=== PATIENT | female | born 1990 | race Caucasian/White ===

== ENCOUNTER 2020-05-09 14:56 | Inpatient (IN) | payer SELFPAY ==
[2020-05-09 14:59] VITALS: BMI 22.3
[2020-05-09 15:05] VITALS: BP 125/87; PULSE 101; RESP 18; TEMP 36.7; O2SAT 98
[2020-05-09] MEDS: ziprasidone 20 mg/mL SDV IM (15:40)
[2020-05-09 16:02] LABS: Basophils % 0.3 %; Eosinophils # 0.1 10^3/uL (0.0-0.8); Hematocrit 43.6 % (37.0-47.0); Hemoglobin 14.1 g/dL (11.5-15.3); Lymphocytes # 2.5 10^3/uL (0.8-4.8); Lymphocytes % 25.9 %; Mean Corpuscular HGB Conc 32.3 g/dL (30.0-36.0); Mean Corpuscular Hemoglobin 28.5 pg (28.0-34.0); Mean Corpuscular Volume 88.3 fL (81-99); Mean Platelet Volume 9.1 fL (7.4-10.4); Monocytes # 0.8 10^3/uL (0.2-0.9); Monocytes % 8.4 %; Neutrophils # 6.14 10^3/uL (1.8-7.7); Neutrophils % 64.1 %; Nucleated Red Blood Cells % 0 %; Platelet Count 339 10^3/cmm (130-400); Red Blood Count 4.94 10^6/uL (4.1-5.3); Red Cell Distribution Width 13.6 % (12.1-15.1); White Blood Count 9.6 10^3/uL (4.0-10.0)
[2020-05-09 16:15] LABS: Add Urine Microscopic? YES; Bilirubin Urine 1+ (NEGATIVE); Blood Urine 3+ (Negative); Glucose Urine UA Norm (Normal); HCG Qualitative Urine. Negative (Negative); Ketones Urine 1+ (Negative); Leukocyte Esterase Urine 2+ (Negative); Nitrate Urine Negative (Negative); Protein Urine 2+ (Negative); Urine Appearance Hazy (CLEAR); Urine Color Amber (Yellow); Urobilinogen Urine 1 mg/dL (Negative); pH Urine 5 (5-7)
[2020-05-09 16:24] LABS: Amphetamines Screen Urine Positive (Negative); Barbiturates Screen Urine Negative (Negative); Benzodiazepines Screen Urine Negative (Negative); Cocaine Screen Urine Negative (Negative); Opiate Screen Urine Negative (Negative); PCP Screen Urine Negative (Negative); THC Screen Urine Positive (Negative)
[2020-05-09 16:29] LABS: Alanine Aminotransferase 9 U/L (0-33); Albumin Level 4.7 g/dL (3.5-5.2); Alkaline Phosphatase 66 IU/L (35-105); Anion Gap 15.9 (5-19); Aspartate Amino Transferase 17 U/L (0-32); Blood Urea Nitrogen 9 mg/dL (6-20); Calcium 9.9 mg/dL (8.5-10.5); Carbon Dioxide 22 mmol/L (22-29); Chloride 103 mmol/L (98-107); Globulin 3.6 g/dL (1.3-4.6); Glomerular Filtration Rate 84.2 mL/min (90-130); Glucose 83 mg/dL (65-115); Osmolality Calculated 279 mOsm/kg (285-295); Potassium 3.9 mmol/L (3.5-5.1); Salicylate 0.9 mg/dL (3-10); Sodium 137 mmol/L (136-145); Thyroid Stimulating Hormone 1.83 uIU/mL (0.27-4.20); Total Bilirubin 0.4 mg/dL (0.15-1.2); Total Protein 8.3 g/dL (6.6-8.7)
[2020-05-09 16:30] LABS: Bacteria Urine 2+; Mucus Urine 3+; Squamous Epithelial Cell Urine 40-55 (0-5); WBC Urine 15-25 /hpf (0-5)
[2020-05-09 16:31] LABS: Add Urine Culture? No
[2020-05-09 16:37] LABS: Acetaminophen < 5.0 ug/mL (10-30); Alcohol Level < 10 mg/dL (0-10)
[2020-05-09 16:40] LABS: INR 0.91 (0.8-1.2)
[2020-05-09 18:42] VITALS: BP 125/87; PULSE 101; RESP 18; TEMP 36.7
[2020-05-09 22:00] VITALS: BP 132/96; PULSE 95; RESP 17; TEMP 37.2; O2SAT 96
--- NOTE | 2020-05-09 22:42 | W.ED.PSYCH ---
HPI - Psych General: Chief Complaint: Psychiatric Symptoms Stated Complaint: 96 Time Seen by Provider: 05/09/20 15:09 History of Present Illness: HPI Narrative: This patient is a 30-year-old female brought in by police. She apparently was in [facility] overnight for drug charges and when she got home she found that her cat had . She believes that her family MRSA killed her cat on purpose and she became quite irate. She threatened her grandmother and herself with a machete. Police were called and the patient was brought in. The officer has written an affidavit regarding her behavior. Patient really does not talk to me except to fabiola and yocasta about how she has been mistreated by her family and the police. She is definitely not rational today. complaint: suicidal ideation Onset (ago): unknown Review of Systems General: Reports: ROS unobtainable due to mental status [facility] ED Female Reproductive History: Date of last menstrual period: 04/15/20 Physical Exam Const: COMMON NORMALS: no acute distress and no limitations GENERAL APPEARANCE: in distress, anxious and disheveled HENMT: HEAD & SCALP: normal to inspection FACE & SINUS: normal facial exam Eye: GENERAL EYE: appearance normal, both eyes and all related structures Neck/C-Spine: COMMON NORMALS: supple and no meningeal signs Chest: COMMONS NORMALS: normal inspection of the chest Resp: COMMON NORMALS: normal respiratory effort GI: COMMON NORMALS: Normal to inspection, nondistended, normoactive bowel sounds present, Soft to palpation and non-tender INSPECTION: Yes normal to inspection AUSCULTATION: Yes normoactive bowel sounds PALPATION: Yes Soft to palpation Extremity: COMMON NORMALS: normal to inspection Neuro: COMMON NORMALS: moves all extremities, no focal motor deficits and no sensory deficits noted MENINGEAL SIGNS: Yes no meningeal signs Psych: COMMON NORMALS: mental status grossly normal APPEARANCE: Yes disheveled ATTITUDE: Yes uncooperative, Yes Belligerent attititude/behavior present, Yes agitated and Yes aggressive Skin: COMMON NORMALS: no rashes or lesions noted and turgor normal GENERAL SKIN EXAM: no rashes or lesions noted and turgor normal MDM - Psych Lab Data: Labs: Lab Results 05/09/20 05/09/20 05/09/20 Range/Units 15:45 15:45 15:45 WBC 9.6 (4.0-10.0) 10^3/ uL RBC 4.94 (4.1-5.3) 10^6/u L Hgb 14.1 (11.5-15.3) g/dL Hct 43.6 (37.0-47.0) % MCV 88.3 (81-99) fL MCH 28.5 (28.0-34.0) pg MCHC 32.3 (30.0-36.0) g/dL RDW 13.6 (12.1-15.1) % Plt Count 339 (130-400) 10^3/c mm MPV 9.1 (7.4-10.4) fL Neut % (Auto) 64.1 % Lymph % (Auto) 25.9 % Teton % (Auto) 8.4 % Eos % (Auto) 1.0 % Baso % (Auto) 0.3 % Neut # (Auto) 6.14 (1.8-7.7) 10^3/u L Lymph # (Auto) 2.5 (0.8-4.8) 10^3/u L Teton # (Auto) 0.8 (0.2-0.9) 10^3/u L Eos # (Auto) 0.1 (0.0-0.8) 10^3/u L Baso # (Auto) 0.0 (0.0-0.1) 10^3/u L Nucleated RBC % (a uto) 0 % Nucleated RBCs # 0.0 /100WBC PT 12.50 (10.5-13.3) SECO NDS INR 0.91 (0.8-1.2) Sodium 137 (136-145) mmol/L Potassium 3.9 (3.5-5.1) mmol/L Chloride 103 (98-107) mmol/L Carbon Dioxide 22 (22-29) mmol/L Anion Gap 15.9 (5-19) BUN 9 (6-20) mg/dL Creatinine 0.8 (0.5-0.9) mg/dL GFR Calculation 84.2 L (90-130) mL/min Glucose 83 (65-115) mg/dL Calculated Osmolal ity 279 L (285-295) mOsm/k g Calcium 9.9 (8.5-10.5) mg/dL Total Bilirubin 0.4 (0.15-1.2) mg/dL AST 17 (0-32) U/L ALT 9 (0-33) U/L Alkaline Phosphata se 66 (35-105) IU/L Total Protein 8.3 (6.6-8.7) g/dL Albumin 4.7 (3.5-5.2) g/dL Globulin 3.6 (1.3-4.6) g/dL TSH 1.83 (0.27-4.20) uIU/ mL HCG, Qual (Negative) Urine Color (Yellow) Urine Appearance (CLEAR) Urine pH (5-7) Ur Specific Gravit y (1.005-1.030) Urine Protein (Negative) Urine Glucose (UA) (Normal) Urine Ketones (Negative) Urine Blood (Negative) Urine Nitrate (Negative) Urine Bilirubin (NEGATIVE) Urine Urobilinogen (Negative) mg/dL Ur Leukocyte Reshma ase (Negative) Urine RBC (0-2) /hpf Urine WBC (0-5) /hpf Ur Squamous Epith Cells (0-5) Ur Transition Epit h Cell /hpf Amorphous Sediment Urine Bacteria (NONE) Hyaline Casts Urine Mucus Salicylates 0.9 L (3-10) mg/dL Urine Opiates Scre en (Negative) ng/mL Acetaminophen < 5.0 L (10-30) ug/mL Ur Barbiturates Sc reen (Negative) ng/mL Ur Phencyclidine S crn (Negative) ng/mL Ur Amphetamines Sc reen (Negative) ng/mL U Benzodiazepines Scrn (Negative) ng/mL Urine Cocaine Scre en (Negative) ng/mL U Marijuana (THC) Screen (Negative) ng/mL Ethyl Alcohol < 10 (0-10) mg/dL 05/09/20 05/09/20 05/09/20 Range/Units 15:57 15:57 15:57 WBC (4.0-10.0) 10^3/ uL RBC (4.1-5.3) 10^6/u L Hgb (11.5-15.3) g/dL Hct (37.0-47.0) % MCV (81-99) fL MCH (28.0-34.0) pg MCHC (30.0-36.0) g/dL RDW (12.1-15.1) % Plt Count (130-400) 10^3/c mm MPV (7.4-10.4) fL Neut % (Auto) % Lymph % (Auto) % Teton % (Auto) % Eos % (Auto) % Baso % (Auto) % Neut # (Auto) (1.8-7.7) 10^3/u L Lymph # (Auto) (0.8-4.8) 10^3/u L Teton # (Auto) (0.2-0.9) 10^3/u L Eos # (Auto) (0.0-0.8) 10^3/u L Baso # (Auto) (0.0-0.1) 10^3/u L Nucleated RBC % (a uto) % Nucleated RBCs # /100WBC PT (10.5-13.3) SECO NDS INR (0.8-1.2) Sodium (136-145) mmol/L Potassium (3.5-5.1) mmol/L Chloride (98-107) mmol/L Carbon Dioxide (22-29) mmol/L Anion Gap (5-19) BUN (6-20) mg/dL Creatinine (0.5-0.9) mg/dL GFR Calculation (90-130) mL/min Glucose (65-115) mg/dL Calculated Osmolal ity (285-295) mOsm/k g Calcium (8.5-10.5) mg/dL Total Bilirubin (0.15-1.2) mg/dL AST (0-32) U/L ALT (0-33) U/L Alkaline Phosphata se (35-105) IU/L Total Protein (6.6-8.7) g/dL Albumin (3.5-5.2) g/dL Globulin (1.3-4.6) g/dL TSH (0.27-4.20) uIU/ mL HCG, Qual Negative (Negative) Urine Color Milana (Yellow) Urine Appearance Hazy A (CLEAR) Urine pH 5 (5-7) Ur Specific Gravit y 1.030 (1.005-1.030) Urine Protein 2+ H (Negative) Urine Glucose (UA) Norm (Normal) Urine Ketones 1+ H (Negative) Urine Blood 3+ H (Negative) Urine Nitrate Negative (Negative) Urine Bilirubin 1+ H (NEGATIVE) Urine Urobilinogen 1 H (Negative) mg/dL Ur Leukocyte Reshma ase 2+ H (Negative) Urine RBC 5-10 H (0-2) /hpf Urine WBC 15-25 H (0-5) /hpf Ur Squamous Epith Cells 40-55 H (0-5) Ur Transition Epit h Cell 5-10 /hpf Amorphous Sediment Not Reportable Urine Bacteria 2+ H (NONE) Hyaline Casts 10-15 H Urine Mucus 3+ Salicylates (3-10) mg/dL Urine Opiates Scre en Negative (Negative) ng/mL Acetaminophen (10-30) ug/mL Ur Barbiturates Sc reen Negative (Negative) ng/mL Ur Phencyclidine S crn Negative (Negative) ng/mL Ur Amphetamines Sc reen Positive H (Negative) ng/mL U Benzodiazepines Scrn Negative (Negative) ng/mL Urine Cocaine Scre en Negative (Negative) ng/mL U Marijuana (THC) Screen Positive H (Negative) ng/mL Ethyl Alcohol (0-10) mg/dL Discharge Plan Discharge Patient Disposition: Admitted As Inpatient Admit Provider: Tacho Damian Clinical Impression: Suicidal ideation, Homicidal ideation, Substance abuse Condition: Stable Discharge Date/Time: 05/09/20 18:04 Coding Level of Care Code ED Syruper for Katie Juan
--- NOTE | 2020-05-10 00:42 | PC.NURSE ---
pt was offered PRN meds for sleep and anxiety, but refused.
[2020-05-10 06:00] VITALS: BP 113/80; PULSE 84; RESP 16; TEMP 36.8; O2SAT 100
--- NOTE | 2020-05-10 10:10 | PM.NHP ---
Providers/Chief Complaint Admitting Physician: Tacho Damian MD Chief Complaint: 96 HPI NPU History of Present Illness Daisha Monroy is a 30 year old female who presented to the emergency room with the police, who had put her on a 96-hour hold, reporting she had been in [facility] for about twelve hours on drug charges, and she got home to find that her cat had . She reports that her cat is blind and basically was next to her, and with her for the last eight years. She reports that she feels her family killed the cat or, at the very least, were so negligent that they could not manage twelve hours without her and it not end up with her cat being . She reports that they say that it jumped out of a window, but she said it could not even do that. She became irate and she threatened her grandmother, but she reports that the things she said were like her life was over, which is quite different from what was reported she said, which was that she threatened to kill herself and her grandmother with a machete. The police were called and she was brought into the emergency room. She was admitted to the neuropsychiatric unit for definitive treatment of those issues. She reports that, in fact, she denies any issues and that what she said was taken totally out of context, and that she was just saying that her life was over because that cat was her best friend and she feels like she lost everything. She reports that she is angry at her family and she has no intentions of going back there, but she does feel that they either actively killed or neglected her cat, to the point that it is now, because it is just a crazy coincidence that her cat in that short period of time when she was gone. She denies any history of psychiatric inpatient or outpatient services. She denies ever being on psychiatric medications. She reports that she started smoking cigarettes and smoking marijuana when she was 18 years old, or so. She reports that she still smokes about a pack of cigarettes a day. She reports that she still has regular marijuana use. She reports she has not had methamphetamine in awhile. She reports that she has maybe had one drug rehabilitation. She has had two DUIs; the last one was about 2008. She denies depression, anxiety, or any need for psychiatric medication. She reports that she would not kill herself and does not feel suicidal, regardless of what they say that she said. PSYCHIATRIC HISTORY: As above. SUBSTANCE ABUSE HISTORY: As above. FAMILY HISTORY: She denies any mental health or addiction issues on either side of the family. She denies any suicide attempts or completions in the family. DEVELOPMENTAL HISTORY: She reports she was born one month early. The patient met all developmental milestones on time. She denies speech therapy, learning support, emotional support, or special education classes. PSYCHOSOCIAL HISTORY: She reports that her mother an father were not together when she was born. Her mom does not have any other children, but she is not sure if her dad does or not. She reports that her childhood was fine. She denies emotional, physical, or sexual abuse. She graduated from high school. She denies any extra training. She endorses being a heterosexual, with the longest relationship being eight years. She has never been , and she has never had children. She has never been in the . She denies any rastafari belief system. She reports that she worked at [employer] for about six years, which is her longest period of employment. She reports that, right now, she had been living in a camper with a friend; but she imagines, at this point, she is going to be homeless, but she has some ideas of what she might do LEGAL HISTORY: She reports she has been in [facility] about three times. The longest time she stayed in was about two weeks. MEDICAL HISTORY: She denies significant medical issues. Meds NPU Home Medications Medication Instructions Recorded Confirmed Last Taken Type No Known Home Medications 05/09/20 05/09/20 Unknown History Allergies Allergy/AdvReac Type Severity Reaction Status Date / Time amoxicillin Allergy Unknown Verified 05/09/20 15:04 clindamycin [From Cleocin] Allergy Unknown Verified 05/09/20 15:04 Mental Status Exam MSE Comments: This is a well-nourished, well-developed, white female, with adequate dress, grooming, and eye contact. She has significant tattooing on her exposed skin. No abnormal movements. Cooperative with exam in no acute distress. Speech was decreased rate and volume. Mood described as tired; affect congruent. Thought process, organized. Thought content: patient denied any suicidal or homicidal ideation, there were no delusions reported or noted, patient denied any auditory or visual hallucinations. Attention, concentration, and memory appear intact but none were formally tested. She is alert and oriented times three. Insight and judgment are limited. Impulse control is limited. Vitals/I&O/Wt Last Vital Signs Temp 98.3 F 05/10/20 06:00 Pulse 84 05/10/20 06:00 Resp 16 05/10/20 06:00 BP 113/80 05/10/20 06:00 Pulse Ox 100 05/10/20 06:00 Weight last 48 hrs Weight 57.153 kg Weight 58.967 kg Data NPU : 05/09/20 15:45 05/09/20 15:45 A&P Assessment and plan (1) Substance abuse: Status: Acute (2) Homicidal ideation: Status: Acute (3) Suicidal ideation: Status: Acute (4) Adjustment disorder with mixed disturbance of emotions and conduct: Status: Acute Additional A&P Information This is a 30 year old, white female, with adjustment disorder with mixed disturbance of emotion and conduct, and substance abuse issues, including active addiction, who presents reporting that there is no need for her to be in the hospital, and she is not interested in any kind of treatment. Continue current medication. Encourage individual, group, and milieu therapy. Continue q-15 minute checks for safety. Encourage patient to follow up with sober living treatment at the highest level of care to which she is willing to commit. Involuntary Hold Information 96 Hour Hold: 96 Hour Involuntary Admission: Yes 96 Hour Hold Ending Date: 05/15/20 96 Hour Hold Ending Time: 12:01 Attestations NPU Medical Necessity Statement*: Inpatient hospitalization is medically necessary and the clinically appropriate intervention at this time. Patient will be in the hospital for two midnights. We will continue to offer medications, as indicated, and evaluate for safety for discharge for the 96-hour hold. Likely length of stay is two to four days. Coding Level of Care Code Acute [employer] Machine Operator for Katie Juan Diagnoses Substance abuse F19.10 Homicidal ideation R45.850 Suicidal ideation R45.851 Adjustment disorder with mixed disturbance of emotions and conduct F43.25
[2020-05-10 14:00] VITALS: BP 113/72; PULSE 84; RESP 18; TEMP 37.1; O2SAT 100
[2020-05-10 21:01] VITALS: BP 107/75; PULSE 87; RESP 20; TEMP 36.9; O2SAT 99
[2020-05-11 06:00] VITALS: BP 132/85; PULSE 84; RESP 20; TEMP 37.1; O2SAT 100
[2020-05-11 14:00] VITALS: BP 132/85; PULSE 84; RESP 20; TEMP 37.1; O2SAT 100
--- NOTE | 2020-05-11 16:37 | P.PN_ITS ---
Subjective NPU Subjective: Interval history: Daisha presents today very upset and wanting to ultimately go home and manage the body of her cat, that she continues to recount as her best friend. She is very frustrated with the situation here because she is not able to smoke, and reports ?how can you call this a place for relieving stress if you don?t allow people to smoke.? She continues to be resistant to consideration of any medication, and ultimately, she is just hopeful that we will end her 96-hour hold early, which I explained to her that although it is likely, it is also predicated on us being able to make calls and verify information from the people who filed this 96-hour hold on her. She was occasionally tearful and identified that she did not have to go back to the place where the conflict was; and that she had one or two possible options and had been planning an alternative living arrangement that she is hoping is going to gardiner out. We agreed that she would speak with the manager social responsibility and, form there, we would be able to determine when discharge seems appropriate. Mental Status Exam MSE Comments: This is a well-nourished, well-developed, white female, with adequate dress, grooming, and eye contact. She has significant tattooing on her exposed skin. No abnormal movements. Cooperative with exam in no acute distress. Speech was decreased rate and volume. Mood described as frustrated; affect congruent. Thought process, organized. Thought content: patient denied any suic idal or homicidal ideation, there were no delusions reported or noted, patient denied any auditory or visual hallucinations. Attention, concentration, and memory appear intact but none were formally tested. She is alert and oriented times three. Insight and judgment are limited. Impulse control is limited. Vitals/I&O/Wt Last Vital Signs Temp 98.4 F 05/11/20 20:12 Pulse 84 05/11/20 20:12 Resp 14 05/11/20 20:12 BP 117/82 05/11/20 20:12 Pulse Ox 99 05/11/20 20:12 Weight last 48 hrs Weight 57.153 kg Data NPU : 05/09/20 15:45 05/09/20 15:45 A&P Additional A&P Information (1) Substance abuse: (2) Homicidal ideation: (3) Suicidal ideation: (4) Adjustment disorder with mixed disturbance of emotions and conduct: This is a 30 year old, white female, with adjustment disorder with mixed dist urbance of emotion and conduct, and substance abuse issues, including active addiction, who presents reporting that there is no need for her to be in the hospital, and she is not interested in any kind of treatment. Continue current medication. Encourage individual, group, and milieu therapy. Continue q-15 minute checks for safety. Encourage patient to follow up with sober living treatment at the highest level of care to which she is willing to commit. Involuntary Hold Information 96 Hour Hold: 96 Hour Involuntary Admission: Yes 96 Hour Hold Ending Date: 05/15/20 96 Hour Hold Ending Time: 12:01 Attestations NPU Medical Necessity Statement*: Inpatient hospitalization is medically necessary and the clinically appropriate intervention at this time. We will continue to offer medications, as indicated, and evaluate for safety for discharge for the 96-hour hold. Likely length of stay is 1-3 days. Coding Level of Care Code Acute [employer] Trans[employer] Attorney for Katie Juan
[2020-05-11 20:12] VITALS: BP 117/82; PULSE 84; RESP 14; TEMP 36.9; O2SAT 99
[2020-05-11] MEDS: trazodone 50 mg Tablet PO (21:50)
[2020-05-11] MEDS: hyDROXYzine 25 mg Capsule 50 MG PO (21:51)
--- NOTE | 2020-05-12 03:38 | PC.NURSE ---
At HS, pt was given PRN vistaril and trazodone per request.
[2020-05-12 06:00] VITALS: BP 98/64; PULSE 70; RESP 17; TEMP 36.9; O2SAT 98
--- NOTE | 2020-05-12 12:34 | PM.NDC ---
Diagnoses at Discharge Discharge Diagnosis (1) Substance abuse: Status: Acute (2) Homicidal ideation: Status: Resolved (3) Suicidal ideation: Status: Resolved (4) Adjustment disorder with mixed disturbance of emotions and conduct: Status: Acute Reason for Visit Reason for Visit: 96 Brief History: History of Present Illness Daisha Monroy is a 30 year old female who presented to the emergency room with the police, who had put her on a 96-hour hold, reporting she had been in senior living for about twelve hours on drug charges, and she got home to find that her cat had . She reports that her cat is blind and basically was next to her, and with her for the last eight years. She reports that she feels her family killed the cat or, at the very least, were so negligent that they could not manage twelve hours without her and it not end up with her cat being . She reports that they say that it jumped out of a window, but she said it could not even do that. She became irate and she threatened her grandmother, but she reports that the things she said were like her life was over, which is quite different from what was reported she said, which was that she threatened to kill herself and her grandmother with a machete. The police were called and she was brought into the emergency room. She was admitted to the neuropsychiatric unit for definitive treatment of those issues. She reports that, in fact, she denies any issues and that what she said was taken totally out of context, and that she was just saying that her life was over because that cat was her best friend and she feels like she lost everything. She reports that she is angry at her family and she has no intentions of going back there, but she does feel that they either actively killed or neglected her cat, to the point that it is now, because it is just a crazy coincidence that her cat in that short period of time when she was gone. She denies any history of psychiatric inpatient or outpatient services. She denies ever being on psychiatric medications. She reports that she started smoking cigarettes and smoking marijuana when she was 18 years old, or so. She reports that she still smokes about a pack of cigarettes a day. She reports that she still has regular marijuana use. She reports she has not had methamphetamine in awhile. She reports that she has maybe had one drug rehabilitation. She has had two DUIs; the last one was about 2008. She denies depression, anxiety, or any need for psychiatric medication. She reports that she would not kill herself and does not feel suicidal, regardless of what they say that she said. PSYCHIATRIC HISTORY: As above. SUBSTANCE ABUSE HISTORY: As above. FAMILY HISTORY: She denies any mental health or addiction issues on either side of the family. She denies any suicide attempts or completions in the family. DEVELOPMENTAL HISTORY: She reports she was born one month early. The patient met all developmental milestones on time. She denies speech therapy, learning support, emotional support, or special education classes. PSYCHOSOCIAL HISTORY: She reports that her mother an father were not together when she was born. Her mom does not have any other children, but she is not sure if her dad does or not. She reports that her childhood was fine. She denies emotional, physical, or sexual abuse. She graduated from high school. She denies any extra training. She endorses being a heterosexual, with the longest relationship being eight years. She has never been , and she has never had children. She has never been in the . She denies any yarsanism belief system. She reports that she worked at [employer] for about six years, which is her longest period of employment. She reports that, right now, she had been living in a camper with a friend; but she imagines, at this point, she is going to be homeless, but she has some ideas of what she might do LEGAL HISTORY: She reports she has been in senior living about three times. The longest time she stayed in was about two weeks. MEDICAL HISTORY: She denies significant medical issues. Hospital Course Hospital Course Daisha presented to the emergency room with the police. She had been in senior living overnight for drug charges, and when she got home she found out that her cat had . She felt that her family had either neglected the cat, or killed that car outright, on purpose. She became irate and reportedly threatened her grandmother and herself, with a machete. Police put her on a 96-hour hold and brought her to the hospital. She was not cooperative in the emergency room. She was admitted to the neuropsychiatric unit for definitive treatment of those issues. On the unit, she denied any active lethality. She reports that she probably said some things that she should not have, and that she did not necessarily mean, but she was very angry because her cat is just that important to her. But she denies having any issues. She does endorse having active addiction, but denies any need to do anything about it. She denies any desire for any medication. So, we spent the time that she was on the unit evaluating her for any concerns for lethality, prior to discharge. During the hospitalization, the patient had routine laboratory studies which were within normal limits, except for a few outliers. Additionally, she had a general medical evaluation which was within normal limits and revealed no new acute processes. Discharge Summary At the time of discharge the patient denied all lethality, was absent psychosis, and mood and anxiety were well managed. The patient endorsed a plan to avoid all drugs of abuse and to follow-up with outpatient services, as recommended. She was evaluated and deemed to be absent credible lethality, and had achieved the maximum benefit from an inpatient hospitalization, and so she was discharged. Involuntary Hold Information 96 Hour Hold: 96 Hour Involuntary Admission: Yes 96 Hour Hold Ending Date: 05/15/20 96 Hour Hold Ending Time: 12:01 Mental Status Exam MSE Comments: This is a well-nourished, well-developed, white female, with adequate dress, grooming, and eye contact. She has significant tattooing on her exposed skin. No abnormal movements. Cooperative with exam in no acute distress. Speech was more normal rate and volume. Mood described as better; affect congruent. Thought process, organized. Thought content: patient denied any suicidal or homicidal ideation, there were no delusions reported or noted, patient denied any auditory or visual hallucinations. Attention, concentration, and memory appear intact but none were formally tested. She is alert and oriented times three. Insight and judgment are improving. Impulse control is limited. Discharge Data Vitals: Last Vital Signs Temp 98.4 F 05/12/20 06:00 Pulse 70 05/12/20 06:00 Resp 17 05/12/20 06:00 BP 98/64 05/12/20 06:00 Pulse Ox 98 05/12/20 06:00 Discharge Plan Discharge Patient Disposition: Home Condition: Stable Prescriptions: Continued No Known Home Medications RF: 0 Discharge Orders: Discharge Order (Routine); Ordered 05/12/20 Ordered By: Tacho Damian Referrals: [facility] [Outside] (Follow up for walk in assessment. This can be done Monday-Monday from 7:30am-2:00pm.) Discharge Diet: Regular Discharge Activity: Resume usual activity Discharge Date/Time: 05/12/20 13:30 Discharge Attestations NPU Time Spent in Discharge Care*: less than 30 min Specific Discharge Activities: Specific discharge activities: educating patient, discussing with case resolution specialist/social workers/dc planners, documenting/other paperwork and evaluating patient/reviewing data Coding Level of Care Code Acute Tax Manager for [facility] Fwd Diagnoses Substance abuse F19.10 Homicidal ideation R45.850 Suicidal ideation R45.851 Adjustment disorder with mixed disturbance of emotions and conduct F43.25
[2020-05-12 12:53] VITALS: BP 98/64; PULSE 70; RESP 17; TEMP 36.9; O2SAT 98
== END 2020-05-12 13:30 | disposition home or self-care (01) | DRG 882 ==
LOC: ER 16:53 → NP 17:26
PROVIDERS: Emergency Medicine; Admitting Provider Psychiatry & Neurology Psychiatry; Visit Provider Psychiatry & Neurology Psychiatry
DX: F43.25 Adjustment disorder with mixed disturbance of emotions and conduct (principal); R45.851 Suicidal ideations; R45.850 Homicidal ideations; F12.10 Cannabis abuse, uncomplicated; F17.210 Nicotine dependence, cigarettes, uncomplicated
CPT/HCPCS: 12345; 36415; 80053; 80306; 80307; 81001; 81003; 81025; 84443; 85025; 85610; 96372; 99284; J3486

== ENCOUNTER → 2021-09-28 09:24 | Outpatient (BNVA) | payer SELFPAY | PROVIDERS: Visit Provider Nurse Practitioner Women's Health | DX: Z11.3 Encounter for screening for infections with a predominantly sexual mode of transmission (principal); Z01.419 Encounter for gynecological examination (general) (routine) without abnormal findings | CPT/HCPCS: 86592; 86803; 87340; 87491; 87522; 87591; 87624; 87661; 87806 ==

== ENCOUNTER → 2021-11-11 11:49 | Outpatient (BNVA) | payer OTHER, SELFPAY | PROVIDERS: Visit Provider Psychiatry & Neurology Psychiatry | DX: F43.25 Adjustment disorder with mixed disturbance of emotions and conduct (principal); F19.10 Other psychoactive substance abuse, uncomplicated | CPT/HCPCS: 80061; 83036 ==

== ENCOUNTER → 2021-12-21 10:30 | Outpatient (BNVA) | payer MEDICAID, SELFPAY ==
[2021-11-22 16:21] VITALS: BP 126/87; BMI 26.7
== END ==
PROVIDERS: Visit Provider Nurse Practitioner Women's Health
DX: B19.20 Unspecified viral hepatitis C without hepatic coma (principal); A74.9 Chlamydial infection, unspecified; A59.9 Trichomoniasis, unspecified
CPT/HCPCS: 80053; 82105; 85025; 87491; 87591; 87661

== ENCOUNTER 2022-01-05 07:38 | Outpatient (CLI) | payer MEDICAID, SELFPAY ==
[2021-11-22 16:21] VITALS: BP 126/87; BMI 26.7
--- NOTE | 2022-01-05 08:00 | US_ITS ---
WS: [id number] ULTRASOUND ABDOMEN LIMITED CLINICAL INFORMATION: Hep C COMPARISON: None. FINDINGS: Liver Size: Normal. Craniocaudal length: 13.1 cm. Echogenicity: Coarse Surface nodularity: None. Mass (size and location): None. Bile ducts Intrahepatic ducts: Normal. Common bile duct diameter: 0.5 cm. Gallbladder Prior cholecystectomy. Pancreas Normal as visualized. Right kidney: Normal. Hydronephrosis: None. Size: 10.8 cm x 4.9 cm x 4.7 cm. Abdominal aorta and IVC Visualized portions are normal. Ascites: None. US/US liver 89167 IMPRESSION: 1. Normal liver size. Slightly coarse hepatic echogenicity can be seen with mi ld fatty infiltration or may be related to history of hepatitis C. No intrahepa tic biliary ductal dilatation. 2. Prior cholecystectomy. Normal common bile duct. 3. No hydronephrosis in RIGHT kidney.
== END 2022-01-05 07:39 | disposition home or self-care (01) ==
LOC: RAD 07:38
PROVIDERS: Visit Provider Internal Medicine
DX: B19.20 Unspecified viral hepatitis C without hepatic coma (principal); Z90.49 Acquired absence of other specified parts of digestive tract
CPT/HCPCS: 76705

== ENCOUNTER → 2022-01-18 16:08 | Outpatient (BNVA) | payer MEDICAID, SELFPAY ==
[2021-11-22 16:21] VITALS: BP 126/87; BMI 26.7
== END ==
PROVIDERS: Visit Provider Internal Medicine
DX: B19.20 Unspecified viral hepatitis C without hepatic coma (principal)
CPT/HCPCS: 87902

== ENCOUNTER 2022-02-06 10:12 | Emergency (ER) | payer MEDICAID, SELFPAY ==
[2021-11-22 16:21] VITALS: BP 126/87; BMI 26.7
[2022-02-06 10:39] VITALS: BP 125/86; PULSE 96; RESP 12; TEMP 36.8; O2SAT 96; BMI 26.4
--- NOTE | 2022-02-06 11:16 | ED_ITS ---
HPI - Skin/Abscess/Foreign Bdy General: Chief complaint: Extremity Injury, Upper Stated complaint: Pain under Rt Armpit Time Seen by Provider: 02/06/22 10:43 Source: patient Mode of arrival: ambulatory Limitations: no limitations History of Present Illness: Patient is a 31-year-old female who presents to ED today with complaint of a probable abscess to her right axillary region that she began noticing 2 days ago. She states she does have a history of a staph infection many years ago-she does not recall ever being diagnosed with MRSA. Area to her axilla is not draining. She has not been running fevers. MD complaint: abscess/boil Onset (ago): day(s) Tetanus up to date: yes Location: RUE (R axilla) Severity: moderate Pain Consistency: constant Relieving factors: none Exacerbating factors: palpation and movement Context: none Associated symptoms: Reports no associated symptoms; Deny chills, fever(s), nausea or vomiting Treatments prior to arrival: other ( tried popping ) Review of Systems Const: Denies: fever(s), chills, body aches, fatigue or malaise Card: Denies: chest pain Resp: Denies: dyspnea GI: Denies: abdominal pain, nausea or vomiting Musc: Denies: neck pain, back pain, extremity pain or joint pain Skin/Breast: Reports: other (abscess R axilla) Neuro: Denies: headache(s), numbness in extremities, weakness in extremities or sensory changes PFSH ED PFSH: Medical History No pertinent past medical history neghx: htn,dm,thyroid,dvt/pe PCP: None Psychiatric care Substance induced mood disorder Surgical History Hx of cholecystectomy (Unknown) Family History Denies family history of Colon cancer Ovarian cancer Diabetes Heart disease Hypercholesteremia Breast cancer Hypertension Uterine cancer Thyroid disease Stroke Social History Smoking and tobacco status: current every day smoker Female Reproductive History: Date of last menstrual period: 04/15/20 Physical Exam Const: COMMON NORMALS: no acute distress, patient oriented x3, no limitations and alert GENERAL APPEARANCE: cooperative and appears older than stated age Neck/C-Spine: COMMON NORMALS: no lymphadenopathy Resp: COMMON NORMALS: normal respiratory effort and clear to auscultation bilaterally AUSCULTATION: clear to auscultation bilaterally Cardio: COMMON NORMALS: regular rate and regular rhythm RATE: regular rate RHYTHM: regular rhythm Extremity: COMMON NORMALS: normal to inspection and full ROM GENERAL: Yes normal exam except as noted Neuro: BARRY COMA SCALE: document GCS findings Barry coma scale eye opening: Spontaneous [place] coma scale verbal response: Orientated [place] coma scale motor response: Obey commands [place] coma scale total score: 15 COMMON NORMALS: patient oriented x3, moves all extremities, no focal motor deficits and no sensory deficits noted SENSORIUM/ORIENTATION: Yes alert Skin: NARRATIVE SKIN EXAM: pt has a 3cm x 1cm fluctuant erythematous abscess to mid R axilla w/o any surrounding cellulitis Procedures Abscess I/D Site: upper extremity (R axilla) Side (if applicable): right Local Anesthetic: lidocaine 1% Amount of anesthesia used (mL): 2.0 Technique: incised with #11 blade Amount of fluid expressed (mL): 3.0 Irrigation: Yes Packing used?: plain Course Vital Signs: Vital signs: Vital Signs Temperature 98.2 F 02/06/22 10:39 Pulse Rate 92 02/06/22 12:03 Respiratory Rate 18 02/06/22 12:03 Blood Pressure 130/84 02/06/22 12:03 Pulse Oximetry 100 02/06/22 12:03 MDM - Skin/Abscess/Foreign Bdy Medicial Decision Making I&D performed with purulent drainage expressed. Culture obtained. Packing placed. She can remove this in 72 hours if area if healing well. Patient given instructions to return to the emergency department for worsening pain, swelling, drainage despite antibiotic therapy. Discharge Plan Discharge Patient Disposition: Home Clinical Impression: Abscess of right axilla Condition: Stable Prescriptions: New Bactrim DS 800-160 mg tablet 1 tab PO BID 7 Days Qty: 14 0RF No Action levonorgestrel-ethinyl estrad [Levora-28] 0.15-0.03 mg tablet 1 tab PO DAILY Qty: 84 0RF Discharge Orders: Discharge ED (Routine); Ordered 02/06/22 Ordered By: Alejandra Cueto Patient Instructions: Abscess (ED) Activity Restrictions/Additional Instructions: Please monitor your abscess for worsening symptoms such as worsening redness, swelling, increased drainage, red streaking, or fevers. If you have been on antibiotics for over 48 hours and continue to worsen you need to immediately return to the emergency department for re-evaluation. If your abscess was incised and drained and packing was placed, you should have received instructions on when to return to the emergency department for re-packing (PATIENT CAN REMOVE PACKING IN 72 HOURS-RETURN IF WORSENING DESPITE ANTIBIOTICS). Coding Level of Care Code ED Boat Engine Mechanic for Katie Juan
[2022-02-06 12:03] VITALS: BP 130/84; PULSE 92; RESP 18; O2SAT 100
== END 2022-02-06 12:06 | disposition home or self-care (01) ==
PROVIDERS: Emergency Provider Physician Assistant
DX: L02.411 Cutaneous abscess of right axilla (principal); F17.200 Nicotine dependence, unspecified, uncomplicated
CPT/HCPCS: 10060; 87070; 87075; 87077; 87186; 87205; 99282

== ENCOUNTER → 2023-07-18 09:00 | Outpatient (BNVA) | payer MEDICAID, SELFPAY ==
[2021-11-22 16:21] VITALS: BP 126/87; BMI 26.7
== END ==
PROVIDERS: Referring Provider Family Medicine; Visit Provider Nurse Practitioner Women's Health
DX: R10.2 Pelvic and perineal pain (principal); R76.8 Other specified abnormal immunological findings in serum; Z11.3 Encounter for screening for infections with a predominantly sexual mode of transmission; Z12.4 Encounter for screening for malignant neoplasm of cervix; N92.6 Irregular menstruation, unspecified
CPT/HCPCS: 84702; 87340; 87491; 87522; 87591; 87624; 87806

== ENCOUNTER 2023-12-12 10:53 | Day surgery (SDC) | payer MEDICAID, SELFPAY ==
[2021-11-22 16:21] VITALS: BP 126/87; BMI 26.7
[2023-12-06 11:28] LABS: Basophils # 0.1 10^3/uL (0.0-0.1); Basophils % 0.5 %; Eosinophils # 0.2 10^3/uL (0.0-0.8); Eosinophils % 1.6 %; Hematocrit 44.8 % (36-47); Lymphocytes # 2.7 10^3/uL (0.8-4.8); Lymphocytes % 28.7 %; Mean Corpuscular HGB Conc 33.5 g/dL (30-55); Mean Corpuscular Hemoglobin 29.7 pg (27-33); Mean Corpuscular Volume 88.7 fl (85-98); Mean Platelet Volume 8.8 fL (7.4-10.4); Monocytes # 0.8 10^3/uL (0.2-0.9); Monocytes % 9.1 %; Neutrophils # 5.53 10^3/uL (1.8-7.7); Neutrophils % 59.9 %; Nucleated Red Blood Cells % 0 %; Platelet Count 297 10^3/cmm (157-399); Red Blood Count 5.05 10^6/uL (3.85-5.65); Red Cell Distribution Width 13.1 % (12.1-15.1); White Blood Count 9.24 10^3/uL (3.29-11.43)
--- NOTE | 2023-12-06 11:28 | P.ANESASSM_ITS ---
Pre-Anesthetic Assessment Height/Weight: Height 1.55 m Preop Diagnosis: pelvic pain, hydrosalpinx Operation Date: 12/12/23 11:45 Proposed Procedures p Diagnostic laparoscopy 25536, possible bilateral salpingectomy 69256, R10.2,N70.11(Not Applicable) - Alirio Marcelino MD s Poss Salpingectomy 66614(Not Applicable) - Alirio Marcelino MD Familial anesthetic complications: None Social Tobacco and No alcohol Exam alert, oriented x 3, clear to auscultation bilaterally and regular rate & rhythm Airway Mallampati: Class I Dentition: false Pulmonary Cough (Chronic associated with vaping) CV/HEM None reported None reported Hepatic Hepatitis (C) GI None reported Metabolic None reported Musc/skel None reported Neuropsych None reported Anesthetic Plan ASA status: 2 Anesthesia: General Risk of > 500 ml blood loss (7ml/kg in children): No Medications/Allergies Home Medications Medication Instructions Recorded Confirmed Last Taken Type No Known Home Medications 12/06/23 12/06/23 Unknown History Allergies Allergy/AdvReac Type Severity Reaction Status Date / Time amoxicillin Allergy Unknown Verified 12/06/23 11:01 clindamycin [From Cleocin] Allergy Unknown Verified 12/06/23 11:01 [facility] Anesthesia Medical History Substance induced mood disorder No pertinent past medical history neghx: htn,dm,thyroid,dvt/pe PCP: None Surgical History Hx of cholecystectomy (Unknown) Family History Denies family history of Colon cancer Ovarian cancer Diabetes Heart disease Hypercholesteremia Breast cancer Hypertension Uterine cancer Thyroid disease Stroke Social History Smoking and tobacco/nicotine status: current every day tobacco/nicotine user cigarettes Alcohol intake: never Female Reproductive History Date of last menstrual period: 11/27/23 Data Anesthesia 12/06/23 11:20 12/06/23 11:20 Cardiac Studies: 2 No Data to Display
[2023-12-06 11:43] LABS: Add Urine Culture? No; Add Urine Microscopic? YES; Bacteria Urine TRACE /hpf; Bilirubin Urine Neg (Negative); Blood Urine 3+ (Negative); Glucose Urine UA Norm (Normal); Ketones Urine 1+ (Negative); Leukocyte Esterase Urine 2+ (Negative); Nitrate Urine Negative (Negative); Protein Urine Neg (Negative); RBC Urine 0-4 /hpf (0-2); Specific Gravity, Urine 1.005 (1.005-1.030); Urine Appearance Clear (CLEAR); Urine Color Yellow (Yellow); Urobilinogen Urine Neg (Negative); WBC Urine 0-4 /hpf (0-5); pH Urine 5 (5-7)
[2023-12-06 11:54] LABS: Alanine Aminotransferase 46 U/L (0-33); Albumin Level 4.5 g/dL (3.5-5.2); Alkaline Phosphatase 86 U/L (35-105); Blood Urea Nitrogen 5 mg/dL (6-20); Carbon Dioxide 22 mmol/L (22-29); Chloride 101 mmol/L (98-107); Globulin 3.7 g/dL (1.3-4.6); Glomerular Filtration Rate 96.4 mL/min (90-130); Glucose 89 mg/dL (65-115); Osmolality Calculated 275 mOsm/kg (285-295); Sodium 134 mmol/L (136-145); Total Bilirubin 0.4 mg/dL (0.15-1.2); Total Protein 8.2 g/dL (6.6-8.7)
[2023-12-06 11:55] LABS: Anion Gap 15.3 (5-19); Aspartate Amino Transferase 32 U/L (0-32); Potassium 4.3 mmol/L (3.5-5.1)
[2023-12-06 20:09] LABS: OR HCG Qualitative Urine Negative (Negative)
[2023-12-12] VITALS (8 sets, daily range): BP systolic 133–170; BP diastolic 77–112; PULSE 50–78; RESP 18; TEMP 36.1–36.8; O2SAT 93–100; BMI 30.2
[2023-12-12] MEDS: sodium chloride 0.9% 500 ML IV (11:35)
[2023-12-12] MEDS: scopolamine 1.5 Patch 1 PATCH TRANSDERMA (11:39)
[2023-12-12] MEDS: vancomycin 1,000 MG in sodium chloride 0.9% 250 ML 250 MG IV (11:50)
--- NOTE | 2023-12-12 12:17 | P.ANESUD_ITS ---
Pre-Anesthetic Update Pre-Anesthetic Assessment: Date of Surgery/Procedure: 12/12/23 Preop Rivka gnosis: pelvic pain, hydrosalpinx Proposed Procedure: Operation Date: 12/12/23 12:45 Proposed Procedures p Diagnostic laparoscopy 52097, possible bilateral salpingectomy 98010, R10.2,N70.11(Not Applicable) - Alirio Marcelino MD s Poss Salpingectomy 28543(Not Applicable) - Alirio Marcelino MD Any changes to Pre-Anesthetic Assessment?: No Last Intake: Intake Last Liquid Date 12/12/23 Last Liquid Time 09:00 Last Solid Date 12/11/23 Last Solid Time 16:00 Vitals: Temperature 98.3 F 12/12/23 11:18 Temperature Source Temporal Artery S can 12/12/23 11:18 Pulse Rate 59 L 12/12/23 11:18 Respiratory Rate 18 12/12/23 11:18 Blood Pressure 133/77 12/12/23 11:18 Blood Pressure Lorena n 95 12/12/23 11:18 Pulse Oximetry 100 12/12/23 11:18 Oxygen Delivery Me thod Room Air 12/12/23 11:18 Exam: Pre-Anes Outpt Exam: alert and oriented x 3 Other Pertinent Information: Other Pertinent Information: Smoked today Cardiac Studies: No Data to Display
[2023-12-12] MEDS: diphenhydrAMINE 50 mg/mL SDV 1mL 25 MG IVP (12:33)
[2023-12-12] MEDS: sodium chloride 0.9% 1,000 ML 30 ML IV (12:38)
--- NOTE | 2023-12-12 13:24 | W.PM.OPSUD ---
Surgery/Procedure H&P Update DATE OF PROCEDURE: December 12, 2023 DATE H&P PERFORMED: 12/06/23 H&P UPDATE INFORMATION: I have reviewed H&P completed within last 30 days, I have examined patient prior to procedure and No changes to prior documentation PREOP DIAGNOSIS: pelvic pain, hydrosalpinx PLANNED PROCEDURE: Operation Date: 12/12/23 12:45 Proposed Procedures p Diagnostic laparoscopy 34094, possible bilateral salpingectomy 65840, R10.2,N70.11(Not Applicable) - Alirio Marcelino MD s Poss Salpingectomy 20357(Not Applicable) - Alirio Marcelino MD
[2023-12-12] MEDS: levofloxacin-dextrose 5 % 500 MG/100 ML PREMIX 100 MG IV (13:50)
[2023-12-12] MEDS: BUPivacaine 0.5% INJ 30 mL INJECTION (14:55)
--- NOTE | 2023-12-12 15:25 | PM.OP ---
Operative Report Date of procedure: December 12, 2023 Pre-op diagnosis: Pelvic pain Hydrosalpinx Post-op diagnosis: same Post-op findings: Bilateral hydrosalpinx [id number]-[id number]-[id number] syndrome Procedure done: Diagnostic laparoscopy Bilateral salpingectomy Surgeon: Alirio Marcelino MD Estimated blood loss (mL): 25 IV fluids (mL): 1,300 Urine output (mL): 200 Procedure: After informed consent, the patient was taken to the operating room where general anesthesia was administered. She was placed in the dorsal lithotomy position and prepped and draped in sterile fashion. Pre-Procedure Time-Out verifying the correct patient identity, correct procedure verified with consent, correct site and side, correct patient position, availability of correct implants and any special equipment or requirements was performed and acknowledge by the OR team. The patient was examined under anesthesia and found to have a normal uterus with normal adnexa. A weighted speculum was placed in the vagina, and the anterior lip of cervix was grasped with the single toothed tenaculum. A uterine manipulator was advanced into the endocervical canal and uterus. The tenaculum was removed after uterine manipulator was secured. The speculum was removed from the vagina. An intraumbilical incision was made with a scalpel. While tenting up on the abdomen, a Verres needle was admitted into the intra-abdominal cavity. A saline drop test was performed and noted to be within normal limits. Pneumoperitoneum was attained with 4 liters of carbon dioxide. The Verres needle was removed. A 5 mm Opitc view trocar and sleeve were admitted into the abdomen and laparoscopic confirmation of location was achieved. A second incision was made 3 cm above the symphysis pubis, and a 5 mm trocar sleeves were admitted into the abdomen under direct laparoscopic visualization without complication. A survey revealed normal abdominal anatomy with the exception of string adhesion to the right lower anterior abdominal wall. A 5 mm blunt probe was advanced through the second trocar sleeve, and light manipulation of ovaries and uterus to assess the posterior aspects was performed. The pelvic survey shows normal uterus, left and right adnexa. The left ovary was noted with a follicular cyst. The string adhesion was fulgurated and transected with good hemostasis with the Ligasure. The patient was placed into Trendelenburg position. The fallopian tubes were inspected bilaterally and the fimbriated ends of the fallopian tubes were visualized bilaterally. Attention was then directed to the right side. The fallopian tube and mesosalpinx were grasped and the underlying mesosalpinx was cauterized and cut using the Ligasure device. Serial cauterization and cutting was used to separate the fallopian tube from the underlying mesosalpinx until it could be amputated cutting it approximated 2 cm from the cornua. Attention was then turned to the contralateral fallopian tube, which was removed in similar fashion. Both specimens were removed through the trocar and sent to pathology. The instruments were removed. The suprapubic trocar port was removed under direct visualization insuring good hemostasis. The carbon dioxide was allowed to escape from the abdomen. The intraumbilical trocar sleeve was withdrawn under visualization with laparoscope in the sleeve to insure hemostasis. The skin incisions were closed with 3-O Monocryl subcuticular stich and Dermabond. The instruments were removed from the vagina, and excellent hemostasis was noted. The patient tolerated the procedure well, and sponge, lap and needle count were correct times two. The patient was taken to the recovery room in good condition.
--- NOTE | 2023-12-12 16:29 | ANE.PACU2 ---
Inpatient post-anesthesia follow up: Airway intact: Yes Vital signs: Temperature 97.2 F Pulse Rate 59 Respiratory Rate 18 Blood Pressure 135/88 Pulse Oximetry 93 Oxygen Delivery Me thod Room Air Oxygen Flow Rate 8 Fraction of Inspir ed Oxygen Hydration adequate: Yes Nausea and vomiting: No Pain level: 2 Mental status: Baseline
== END 2023-12-12 16:40 | disposition home or self-care (01) ==
PROVIDERS: PCP Family Medicine; Visit Provider Obstetrics & Gynecology
PROC: (CPT 49320; principal; 2023-12-12 12:35)
PROC: (CPT 58700; 2023-12-12 12:35)
DX: N70.11 Chronic salpingitis (principal); A74.81 Chlamydial peritonitis; Z86.19 Personal history of other infectious and parasitic diseases; F17.210 Nicotine dependence, cigarettes, uncomplicated
CPT/HCPCS: 58661; 36415; 80053; 81001; 84703; 85025; 86850; 86900; 88302; J1100; J1170; J1200; J1956; J2250; J2405; J2704; J2710; J3010; J3370; J3490; J7030; J7040; J7050

== ENCOUNTER → 2025-03-06 16:31 | Outpatient (BNVA) | payer MEDICAID, SELFPAY ==
[2021-11-22 16:21] VITALS: BP 126/87; BMI 26.7
== END ==
PROVIDERS: PCP Family Medicine; Visit Provider Nurse Practitioner Women's Health
DX: Z00.00 Encounter for general adult medical examination without abnormal findings (principal); Z12.4 Encounter for screening for malignant neoplasm of cervix
CPT/HCPCS: 80053; 80061; 83036; 84443; 85025; 86592; 86803; 87340; 87522; 87624; 87806

== ENCOUNTER → 2025-04-23 11:04 | Outpatient (BNVA) | payer MEDICAID, SELFPAY ==
[2021-11-22 16:21] VITALS: BP 126/87; BMI 26.7
== END ==
PROVIDERS: PCP Family Medicine; Visit Provider Obstetrics & Gynecology
DX: R87.612 Low grade squamous intraepithelial lesion on cytologic smear of cervix (LGSIL) (principal)
CPT/HCPCS: 88305

== ENCOUNTER → 2025-04-24 10:02 | Outpatient (BNVA) | payer MEDICAID, SELFPAY ==
[2021-11-22 16:21] VITALS: BP 126/87; BMI 26.7
== END ==
PROVIDERS: PCP Family Medicine; Visit Provider Obstetrics & Gynecology
DX: R10.2 Pelvic and perineal pain (principal); D25.1 Intramural leiomyoma of uterus
CPT/HCPCS: 76830